=== PATIENT | male | born 1960 | race Caucasian/White ===

== ENCOUNTER 2017-09-18 07:01 | Emergency (ER) | payer MEDICAID ==
[~2017-09-18] VITALS: Ht 160 cm; Wt 59.0 kg
[2017-09-18] MEDS ORDERED: ACETAMINOPHEN 325MG TABLET PO ONE (07:45)
[2017-09-18] MEDS ORDERED: TETANUS, DIPHTHERIA, PERTUSSIS VAC/PF 0.5ML (>7YR OLD) IM ONE (07:45)
[2017-09-18] MEDS ORDERED: BACITRACIN ZINC OINT UDPKT TOP ONE (07:45)
[2017-09-18 08:31] VITALS: BP 102/59
== END 2017-09-18 09:09 | disposition home or self-care (01) ==
LOC: ER 07:20
DX: S00.83XA Contusion of other part of head, initial encounter (principal); W22.8XXA Striking against or struck by other objects, initial encounter; Y93.89 Activity, other specified; Y92.89 Other specified places as the place of occurrence of the external cause; Y99.8 Other external cause status
CPT/HCPCS: 70486; 90471; 90715; 99284; Z7610